=== PATIENT | female | born 1945 | race Caucasian/White ===

== ENCOUNTER 2016-12-10 13:03 | Emergency (ER) | payer MEDICARE ==
--- NOTE | 2016-12-12 13:11 | ER ---
ADMIT: 12/10/2016 RM/LOC: ER [facility] MR#: [id number] [facility] [place], [place] [id number] RIAN JONES [facility] [address] [place] [address] Emergency Room Report SEX: F AGE: 71 : 1945 DATE: 12/10/2016 ADDENDUM: This patient comes into the ER because she is concerned about some redness in her right arm. She was seen in this ER yesterday and diagnosed as having a cellulitis. They christiano a blue mario around her arm, and she feels it has gone a little bit past the blue mario and so she comes to the ER. On physical exam, she does have a cellulitis in her right upper arm. I do not see the cellulitis passing the blue mario; however, in her lower arm, it does appear to be warm and she says it was not like that previously. It is more over the forearm about patch 9 x 3 cm. There is no streaking up her arm. She has no fevers. This patient was also seen by Dr. Gavin. I wrote a prescription for Bactrim to add to the Keflex, and we will have her see her doctor tomorrow. Please see my T-sheet. MAUREEN Eddy / Jamir Gavin MD / sharmin JOB #: [id number] CC: Jamir Gavin MD, Attending Physician Jany Duron MD, Family Physician
== END 2016-12-10 15:00 | disposition home or self-care (01) ==
LOC: ER 13:03
DX: L03.113 Cellulitis of right upper limb (principal); E11.9 Type 2 diabetes mellitus without complications; Z88.8 Allergy status to other drugs, medicaments and biological substances; Z91.040 Latex allergy status; Z79.899 Other long term (current) drug therapy